=== PATIENT | female | born 1930 | race Caucasian/White ===

== ENCOUNTER → 2016-07-03 | Outpatient (CLI) | payer MEDICARE, BC | LOC: MW.CHORTHO 08:00 | PROVIDERS: ATTEND Physician Assistant | DX: M17.11 Unilateral primary osteoarthritis, right knee (principal) | CPT/HCPCS: 20610; G0463; J1040 ==

== ENCOUNTER 2018-05-17 07:49 | Observation (INO) | payer MEDICARE, BC ==
[2018-05-17] MEDS ORDERED: Sodium Chloride 0.9% 2.5 ML Syringe FLUSH PRN (08:05)
[2018-05-17] MEDS ORDERED: Sodium Chloride 0.9% 10 ML Syringe FLUSH PRN (08:05)
[2018-05-17] MEDS ORDERED: Albuterol/Ipratropium 3.0-0.5 MG/3 ML Neb Soln NEB ONE ×2 (08:05→09:25)
[2018-05-17] MEDS ORDERED: methylPREDNISolone Sodium Succinate 125 MG/2 ML SDV IVPUSH ONE (08:06)
--- NOTE | 2018-05-17 08:07 | EDM.PDOC ---
ED HPI GENERAL MEDICAL PROBLEM - General Chief Complaint: Respiratory Problem Stated Complaint: CONGEESTION & COUGH Time Seen by Provider: 05/17/18 08:00 - History of Present Illness INITIAL COMMENTS - FREE TEXT/NARRATIVE: HISTORY AND PHYSICAL: History of present illness: The patient is an 87-year-old female who resides at [facility] and has a history of hypertension peripheral edema and type 2 diabetes and is a code 3 status and was sent to the ED for a one-week history of dry cough minimally productive of any phlegm and the patient feeling worse over the last 24 hours with more shortness of breath and wheezing. The patient says she has no pulmonary history and her paperwork does not indicate that she has any significant pulmonary history and she has had no chest pain. She says she has been eating and drinking normally and has no abdominal pain vomiting or diarrhea. The patient said she had one episode where she was able to get some phlegm up with she doesn't feel like there is any phlegm trapped and she feels like the cough is very dry. According to the report from the residential she had an O2 sat of 90% on room air and she was placed on 2 L it went up to 94%. On arrival here she was 77% on room air and on 2 L she went up immediately to 94 %. The residential did not report giving any nebulizer treatments and she has no orders for same. They did not report any fever but here she is 99.6. In the ED the patient is speaking clearly and easily and she is cooperative and she has no complaints only of the cough and some shortness of breath. Please note that the patient does have a history of peripheral edema which she receives a low dose of Lasix daily as well as wears compression stockings on her legs. According to the paperwork and the patient she has never had congestive heart failure. Review of systems: As per history of present illness and below otherwise all systems reviewed and negative. Past medical history: As per history of present illness and as reviewed below otherwise noncontributory. Surgical history: As per history of present illness and as reviewed below otherwise noncontributory. Social history: No reported history of drug or alcohol abuse. Family history: As per history of present illness and as reviewed below otherwise noncontributory. Physical exam: General: Well-developed well-nourished female who is speaking without breathlessness and has no worker breathing. She moves easily in the bed and does have a dry cough on my evaluation. Vital signs are noted by me. O2 sat on 2 L is 94%. HEENT: Atraumatic, normocephalic, , negative for conjunctival pallor or scleral icterus, mucous membranes moist, throat clear, neck supple, nontender, trachea midline. No cervical adenopathy Lungs: Extremely wheezing throughout all garcia with some rhonchi and crackles at the bases but no work of breathing or stridor, breath sounds equal bilaterally, chest nontender. Heart: S1S2, regular rate and rhythm but heart sounds are very distant and difficult to auscultate due to the wheezing Abdomen: Soft, nondistended, nontender. Negative for masses or hepatosplenomegaly. Negative for costovertebral tenderness. Patient has a large ventral wall hernia which she says is not new and there is no tenderness Pelvis: Stable nontender. Genitourinary: Deferred. Rectal: Deferred. Extremities: Atraumatic, negative for cords or calf pain. Neurovascular unremarkable. No pedal edema and patient has compression stockings in place Neuro: Awake, alert, oriented. Cranial nerves II through XII unremarkable. Cerebellum unremarkable. Motor and sensory unremarkable throughout. Exam nonfocal. Diagnostics: EKG chest x-ray CBC CMP lactic acid blood cultures influenza Therapeutics: IV O2 monitor gentle IV fluids Solu-Medrol duo neb Patient is intermittently sleeping here as she says she is tired but she has a hacking harsh cough in the ED. She continues to sat at 91-92% on 2 L nasal cannula and she still continues to have wheezing. We will go ahead and give her another DuoNeb and slightly increased her oxygen to get her to 94% or above. I will plan on admission to the hospital and speak with the hospitalist once all testing results are back. 1000: Case was discussed with Dr. Purcell hospitalist who agrees with observation admission and would like her to not be on telemetry. He is currently seeing and evaluating the patient Impression: Bronchitis/bronchospasm with hypoxia; acute on chronic respiratory failure Definitive disposition and diagnosis as appropriate pending reevaluation and review of above. - Related Data Allergies Allergy/AdvReac Type Severity Reaction Status Date / Time house dust Allergy Other Verified 05/17/18 07:57 pollen extracts Allergy Other Verified 05/17/18 07:57 sertraline [From Zoloft] Allergy Other Verified 05/17/18 07:57 Home Meds: Home Meds Acetaminophen 325 mg PO DAILY 05/17/18 [History] Acetaminophen [8Hr Muscle Aches-Pain] 650 mg PO Q8HR 05/17/18 [History] Aspirin 81 mg PO DAILY 05/17/18 [History] Bisacodyl 1 supp RECTAL ASDIRECTED 05/17/18 [History] Calcium Carb & Citrate/Vit D3 [Calcium + D3 ER Tablet] 1 tab PO DAILY 05/17/18 [ History] Carbamide Peroxide [Debrox] 1 drop EARBOTH ASDIRECTED 05/17/18 [History] Citalopram Hydrobromide [Celexa] 20 mg PO DAILY 05/17/18 [History] Furosemide [Lasix] 20 mg PO DAILY 05/17/18 [History] Guiatuss Syrup 1 tsp PO DAILY 05/17/18 [History] Loperamide [Imodium] 2 mg PO DAILY 05/17/18 [History] Losartan/Hydrochlorothiazide [Losartan-HCTZ 100-25 MG] 1 tab PO DAILY 05/17/18 [ History] Mag Hydrox/Al Hydrox/Simeth [Maalox Maximum Strength Susp] 30 ml PO Q8HR PRN 06/30 [History] guaiFENesin [Mucinex] 1 tab PO DAILY 05/17/18 [History] Past Medical History HEENT History: Reports: None Cardiovascular History: Reports: None, High Cholesterol Respiratory History: Reports: None Genitourinary History: Reports: None Neurological History: Reports: None Psychiatric History: Reports: None Endocrine/Metabolic History: Reports: Diabetes, Type II Hematologic History: Reports: None Oncologic (Cancer) History: Reports: Breast - Infectious Disease History Infectious Disease History: Reports: None, Chicken Pox, Measles, Mumps, Rubella - Past Surgical History GI Surgical History: Reports: Appendectomy Female Surgical History: Reports: Hysterectomy Social & Family History - Family History Family Medical History: Noncontributory ED ROS GENERAL - Review of Systems Review Of Systems: ROS reveals no pertinent complaints other than HPI. ED EXAM, GENERAL - Physical Exam Exam: See Below (See dictation) Course - Vital Signs Last Recorded V/S: Last Vital Signs Temp 37.6 C 05/17/18 07:55 Pulse 76 05/17/18 09:25 Resp 22 H 05/17/18 07:55 BP 164/80 H 05/17/18 07:55 Pulse Ox 93 L 05/17/18 09:41 - Orders/Labs/Meds Orders: Active Orders 24 hr Category Date Time Status Patient Status [ADT] Stat ADT 05/17/18 09:59 Ordered Cardiac Monitoring [RC] . DIRECTED Care 05/17/18 08:04 Active EKG Documentation Completion [RC] STAT Care 05/17/18 08:04 Active Oxygen Therapy, ED [RC] ASDIRECTED Care 05/17/18 08:04 Active Pulse Oximetry [RC] ASDIRECTED Care 05/17/18 08:04 Active RT Aerosol Therapy [RC] ASDIRECTED Care 05/17/18 08:06 Active RT Aerosol Therapy [RC] ASDIRECTED Care 05/17/18 09:25 Active CULTURE BLOOD [BC] Stat Lab 05/17/18 08:20 Received CULTURE BLOOD [BC] Stat Lab 05/17/18 08:34 Received Sodium Chloride 0.9% [Normal Saline] 1,000 ml Med 05/17/18 08:15 Active IV ASDIRECTED Sodium Chloride 0.9% [Saline Flush] Med 05/17/18 08:05 Active 10 ml FLUSH ASDIRECTED PRN Sodium Chloride 0.9% [Saline Flush] Med 05/17/18 08:05 Active 2.5 ml FLUSH ASDIRECTED PRN Blood Culture x2 Reflex Set [OM.PC] Stat Oth 05/17/18 08:07 Ordered Saline Lock Insert [OM.PC] Stat Oth 05/17/18 08:04 Ordered Medication Orders Sodium Chloride (Normal Saline) 1,000 mls @ 50 mls/hr IV ASDIRECTED [facility] Admin: 05/17/18 08:33 Dose: 50 mls/hr Sodium Chloride (Saline Flush) 10 ml FLUSH ASDIRECTED PRN PRN Reason: Keep Vein Open Sodium Chloride (Saline Flush) 2.5 ml FLUSH ASDIRECTED PRN PRN Reason: Keep Vein Open Labs: Laboratory Tests 05/17/18 05/17/18 05/17/18 Range/Units 08:20 08:20 08:20 WBC 7.56 (4.0-11.0) K/uL RBC 4.66 (4.30-5.90) M/uL Hgb 13.5 (12.0-16.0) g/dL Hct 42.2 (36.0-46.0) % MCV 90.6 (80.0-98.0) fL MCH 29.0 (27.0-32.0) pg MCHC 32.0 (31.0-37.0) g/dL RDW Std Deviation 47.3 (28.0-62.0) fl RDW Coeff of Nurys 14 (11.0-15.0) % Plt Count 186 (150-400) K/uL MPV 10.00 (7.40-12.00) fL Neut % (Auto) 65.9 (48.0-80.0) % Lymph % (Auto) 16.4 (16.0-40.0) % [place] % (Auto) 11.6 (0.0-15.0) % Eos % (Auto) 6.0 (0.0-7.0) % Baso % (Auto) 0.1 (0.0-1.5) % Neut # (Auto) 5.0 (1.4-5.7) K/uL Lymph # (Auto) 1.2 (0.6-2.4) K/uL [place] # (Auto) 0.9 H (0.0-0.8) K/uL Eos # (Auto) 0.5 (0.0-0.7) K/uL Baso # (Auto) 0.0 (0.0-0.1) K/uL Nucleated RBC % 0.0 /100WBC Nucleated RBCs # 0 K/uL Lactate 1.0 (0.20-2.00) mmol/L Sodium 141 (136-145) mmol/L Potassium 3.6 (3.5-5.1) mmol/L Chloride 102 (98-107) mmol/L Carbon Dioxide 33.1 H (21.0-32.0) mmol/L BUN 29 H (7.0-18.0) mg/dL Creatinine 1.0 (0.6-1.0) mg/dL Est Cr Clr Drug Dosing 30.76 mL/min Estimated GFR (MDRD) 52.3 ml/min Glucose 124 H (74-106) mg/dL Calcium 9.9 (8.5-10.1) mg/dL Total Bilirubin 0.9 (0.2-1.0) mg/dL AST 13 L (15-37) IU/L ALT 15 (14-63) IU/L Alkaline Phosphatase 97 (46-116) U/L Troponin I (0.000-0.056) ng/mL B-Natriuretic Peptide (<100) PG/ML Total Protein 7.1 (6.4-8.2) g/dL Albumin 3.3 L (3.4-5.0) g/dL Globulin 3.8 (2.6-4.0) g/dL Albumin/Globulin Ratio 0.9 (0.9-1.6) 05/17/18 05/17/18 Range/Units 08:20 08:20 WBC (4.0-11.0) K/uL RBC (4.30-5.90) M/uL Hgb (12.0-16.0) g/dL Hct (36.0-46.0) % MCV (80.0-98.0) fL MCH (27.0-32.0) pg MCHC (31.0-37.0) g/dL RDW Std Deviation (28.0-62.0) fl RDW Coeff of Nurys (11.0-15.0) % Plt Count (150-400) K/uL MPV (7.40-12.00) fL Neut % (Auto) (48.0-80.0) % Lymph % (Auto) (16.0-40.0) % [place] % (Auto) (0.0-15.0) % Eos % (Auto) (0.0-7.0) % Baso % (Auto) (0.0-1.5) % Neut # (Auto) (1.4-5.7) K/uL Lymph # (Auto) (0.6-2.4) K/uL [place] # (Auto) (0.0-0.8) K/uL Eos # (Auto) (0.0-0.7) K/uL Baso # (Auto) (0.0-0.1) K/uL Nucleated RBC % /100WBC Nucleated RBCs # K/uL Lactate (0.20-2.00) mmol/L Sodium (136-145) mmol/L Potassium (3.5-5.1) mmol/L Chloride (98-107) mmol/L Carbon Dioxide (21.0-32.0) mmol/L BUN (7.0-18.0) mg/dL Creatinine (0.6-1.0) mg/dL Est Cr Clr Drug Dosing mL/min Estimated GFR (MDRD) ml/min Glucose (74-106) mg/dL Calcium (8.5-10.1) mg/dL Total Bilirubin (0.2-1.0) mg/dL AST (15-37) IU/L ALT (14-63) IU/L Alkaline Phosphatase (46-116) U/L Troponin I < 0.050 (0.000-0.056) ng/mL B-Natriuretic Peptide 38 (<100) PG/ML Total Protein (6.4-8.2) g/dL Albumin (3.4-5.0) g/dL Globulin (2.6-4.0) g/dL Albumin/Globulin Ratio (0.9-1.6) Meds: Medications Generic Name Dose Route Start Last Admin Trade Name Freq PRN Reason Stop Dose Admin Sodium Chloride 1,000 mls @ 50 mls/hr 05/17/18 08:15 05/17/18 08:33 Normal Saline IV 50 mls/hr ASDIRECTED LYNDSEY Administration Sodium Chloride 10 ml 05/17/18 08:05 Saline Flush FLUSH ASDIRECTED PRN Keep Vein Open Sodium Chloride 2.5 ml 05/17/18 08:05 Saline Flush FLUSH ASDIRECTED PRN Keep Vein Open Discontinued Medications Generic Name Dose Route Start Last Admin Trade Name Fremary PRN Reason Stop Dose Admin Albuterol/Ipratropium 3 ml 05/17/18 08:05 05/17/18 08:11 Duoneb 3.0-0.5 Mg/3 Ml NEB 05/17/18 08:06 3 ml ONETIME ONE Administration Albuterol/Ipratropium 3 ml 05/17/18 09:25 05/17/18 09:29 Duoneb 3.0-0.5 Mg/3 Ml NEB 05/17/18 09:26 3 ml ONETIME ONE Administration Methylprednisolone Sodium Succinate 125 mg 05/17/18 08:06 05/17/18 08:32 Solu-Medrol IVPUSH 05/17/18 08:07 125 mg ONETIME ONE Administration Departure - Departure Time of Disposition: 10:02 Disposition: Refer to Observation Condition: Good Clinical Impression: Hypoxia Acute bronchitis Qualifiers: Bronchitis organism: unspecified organism Qualified Code(s): J20.9 - Acute bronchitis, unspecified Acute and chronic respiratory failure Qualifiers: Respiratory failure complication: hypoxia Qualified Code(s): J96.21 - Acute and chronic respiratory failure with hypoxia - Discharge Information Referrals: PCP,None [Primary Care Provider] - Forms: ED Department Discharge - My Orders Last 24 Hours: My Active Orders 05/17/18 08:04 Cardiac Monitoring [RC] . DIRECTED EKG Documentation Completion [RC] STAT Oxygen Therapy, ED [RC] ASDIRECTED Pulse Oximetry [RC] ASDIRECTED Saline Lock Insert [OM.PC] Stat 05/17/18 08:05 Sodium Chloride 0.9% [Saline Flush] 10 ml FLUSH ASDIRECTED PRN Sodium Chloride 0.9% [Saline Flush] 2.5 ml FLUSH ASDIRECTED PRN 05/17/18 08:06 RT Aerosol Therapy [RC] ASDIRECTED 05/17/18 08:07 Blood Culture x2 Reflex Set [OM.PC] Stat 05/17/18 08:15 Sodium Chloride 0.9% [Normal Saline] 1,000 ml IV ASDIRECTED 05/17/18 08:20 CULTURE BLOOD [BC] Stat 05/17/18 08:34 CULTURE BLOOD [BC] Stat 05/17/18 09:25 RT Aerosol Therapy [RC] ASDIRECTED 05/17/18 09:59 Patient Status [ADT] Stat - Assessment/Plan Last 24 Hours: My Active Orders 05/17/18 08:04 Cardiac Monitoring [RC] . DIRECTED EKG Documentation Completion [RC] STAT Oxygen Therapy, ED [RC] ASDIRECTED Pulse Oximetry [RC] ASDIRECTED Saline Lock Insert [OM.PC] Stat 05/17/18 08:05 Sodium Chloride 0.9% [Saline Flush] 10 ml FLUSH ASDIRECTED PRN Sodium Chloride 0.9% [Saline Flush] 2.5 ml FLUSH ASDIRECTED PRN 05/17/18 08:06 RT Aerosol Therapy [RC] ASDIRECTED 05/17/18 08:07 Blood Culture x2 Reflex Set [OM.PC] Stat 05/17/18 08:15 Sodium Chloride 0.9% [Normal Saline] 1,000 ml IV ASDIRECTED 05/17/18 08:20 CULTURE BLOOD [BC] Stat 05/17/18 08:34 CULTURE BLOOD [BC] Stat 05/17/18 09:25 RT Aerosol Therapy [RC] ASDIRECTED 05/17/18 09:59 Patient Status [ADT] Stat
[2018-05-17] MEDS: Sodium Chloride 0.9% 1,000 ML IV SCH ×2 (08:33→12:21)
--- NOTE | 2018-05-17 08:36 | CR ---
Indication: Shortness of breath. Technique: A single AP portable view of the chest was obtained. Comparison: None Findings: The heart is borderline in size. The right hemidiaphragm is elevated. No infiltrate, pleural effusion, pneumothorax is identified. Impression: Elevation of the right hemidiaphragm. Dictated by Kimberly Feng MD @ May 17 2018 8:33AM Signed by Dr. Kimberly Feng @ May 17 2018 8:34AM
[2018-05-17] MEDS ORDERED: oxyCODONE 5 MG Tab PO PRN (10:10)
[2018-05-17] MEDS ORDERED: Acetaminophen 325 MG Tab PO PRN (10:10)
[2018-05-17] MEDS ORDERED: Docusate Sodium 100 MG Cap PO PRN (10:10)
[2018-05-17] MEDS ORDERED: Ondansetron 4 MG Tab.DIS PO PRN (10:10)
[2018-05-17] MEDS ORDERED: Temazepam 15 MG Cap PO PRN (10:10)
--- NOTE | 2018-05-17 10:49 | PCM.HP ---
H&P History of Present Illness - General Date of Service: 05/17/18 Admit Problem/Dx: Admission Diagnosis/Problem Admission Diagnosis/Problem Acute on chronic respiratory failure Source of Information: Patient, Old Records History Limitations: Reports: No Limitations - History of Present Illness Initial Comments - Free Text/Narative: The patient is an 87-year-old lady who resides at [facility] and she had presented to the emergency department with a chief complaint of a cough. The patient says that she was noted to have a cough and low oxygen levels and this was documented in the emergency room notes. The patient's only complaint is that she has a dry cough. She has no other complaints. She's had no dizziness or lightheadedness. The patient also has a large ventral hernia that has not been causing her any difficulty. On arrival in the emergency department the patient's oxygen saturation was at 77% on room air. Onset of Symptoms: Reports: Sudden Duration of Symptoms: Reports: Hour(s): Location: Reports: Chest Quality: Reports: Stabbing Severity: Mild Improves with: Reports: Rest Worsens with: Reports: Breathing Context: Reports: Sick Contact Associated Symptoms: Reports: Cough - Related Data Allergies/Adverse Reactions: Allergies Allergy/AdvReac Type Severity Reaction Status Date / Time house dust Allergy Other Verified 05/17/18 07:57 pollen extracts Allergy Other Verified 05/17/18 07:57 sertraline [From Zoloft] Allergy Other Verified 05/17/18 07:57 Home Medications: Home Meds Acetaminophen 325 mg PO DAILY 05/17/18 [History] Acetaminophen [8Hr Muscle Aches-Pain] 650 mg PO Q8HR PRN 05/17/18 [History] Aspirin 81 mg PO DAILY 05/17/18 [History] Bisacodyl 1 supp RECTAL ASDIRECTED PRN 05/17/18 [History] Calcium Carb & Citrate/Vit D3 [Calcium + D3 ER Tablet] 1 tab PO DAILY 05/17/18 [ History] Carbamide Peroxide [Debrox] 1 drop EARBOTH ASDIRECTED PRN 05/17/18 [History] Citalopram Hydrobromide [Celexa] 20 mg PO DAILY 05/17/18 [History] Furosemide [Lasix] 20 mg PO DAILY 05/17/18 [History] Guiatuss Syrup 1 tsp PO DAILY 05/17/18 [History] Loperamide [Imodium] 2 mg PO DAILY PRN 05/17/18 [History] Losartan/Hydrochlorothiazide [Losartan-HCTZ 100-25 MG] 1 tab PO DAILY 05/17/18 [ History] Mag Hydrox/Al Hydrox/Simeth [Maalox Maximum Strength Susp] 30 ml PO Q8HR PRN 06/30 [History] Memantine HCl [Namenda Xr] 28 mg PO BEDTIME PRN 05/17/18 [History] Potassium Chloride [Klor-Con 10] 10 meq PO DAILY 05/17/18 [History] Vit A/Vit C/Vit E/Zinc/Copper [Preservision] 2 tab PO DAILY 05/17/18 [History] guaiFENesin [Mucinex] 0.5 tab PO DAILY PRN 05/17/18 [History] Past Medical History HEENT History: Reports: None Cardiovascular History: Reports: None, High Cholesterol Respiratory History: Reports: None Other Respiratory History: Cough Gastrointestinal History: Reports: Other (See Below) Other Gastrointestinal History: abdominal hernia, constipation Genitourinary History: Reports: None CIVIL CLERK History: Reports: None Musculoskeletal History: Reports: Osteoarthritis, Other (See Below) Other Musculoskeletal History: generalized edema Neurological History: Reports: None Psychiatric History: Reports: None Endocrine/Metabolic History: Reports: None Hematologic History: Reports: None Immunologic History: Reports: None Oncologic (Cancer) History: Reports: Breast Dermatologic History: Reports: None - Infectious Disease History Infectious Disease History: Reports: None, Chicken Pox, Measles, Mumps, Rubella - Past Surgical History GI Surgical History: Reports: Appendectomy Female Surgical History: Reports: Hysterectomy Social & Family History - Family History Family Medical History: Noncontributory - Tobacco Use Smoking Status *Q: Never Smoker Second Hand Smoke Exposure: No - Caffeine Use Caffeine Use: Reports: None - Recreational Drug Use Recreational Drug Use: No - Living Situation & Occupation Living situation: Reports: , Extended Care Facility Occupation: Retired H&P Review of Systems - Review of Systems: Review Of Systems: See Below General: Reports: No Symptoms HEENT: Reports: Hearing Changes Pulmonary: Reports: Shortness of Breath, Cough. Denies: Sputum Cardiovascular: Reports: No Symptoms Gastrointestinal: Reports: No Symptoms Genitourinary: Reports: No Symptoms Musculoskeletal: Reports: No Symptoms Skin: Reports: No Symptoms Psychiatric: Reports: No Symptoms Neurological: Reports: No Symptoms Hematologic/Lymphatic: Reports: No Symptoms Immunologic: Reports: No Symptoms Exam - Exam Exam: See Below - Vital Signs Vital Signs: Last Vital Signs Temp 37.0 C 05/17/18 10:23 Pulse 76 05/17/18 09:38 Resp 20 05/17/18 09:38 BP 139/66 05/17/18 09:38 Pulse Ox 93 L 05/17/18 09:41 Weight: 90.083 kg - Exam Quality Assessment: Supplemental Oxygen General: Alert, Oriented, Cooperative HEENT: Conjunctiva Clear, EACs Clear, EOMI. No: Mucosa Moist & Loa (Dry) Neck: Supple, Trachea Midline Lungs: Normal Respiratory Effort, Rhonchi. No: Clear to Auscultation Cardiovascular: Regular Rate, Irregular Rhythm GI/Abdominal Exam: Normal Bowel Sounds, Soft, Non-Tender, No Distention, Other ( Large ventral hernia) (Female) Exam: Deferred Rectal (Female) Exam: Deferred Back Exam: Normal Inspection (Kyphosis) Extremities: No Pedal Edema Skin: Warm, Dry, Intact Neurological: Cranial Nerves Intact Neuro Extensive - Mental Status: Alert, Oriented x3 Psychiatric: Alert, Normal Affect, Normal Mood - Patient Data Lab Results Last 24 hrs: Laboratory Results - last 24 hr 05/17/18 05/17/18 05/17/18 Range/Units 08:20 08:20 08:20 WBC 7.56 (4.0-11.0) K/uL RBC 4.66 (4.30-5.90) M/uL Hgb 13.5 (12.0-16.0) g/dL Hct 42.2 (36.0-46.0) % MCV 90.6 (80.0-98.0) fL MCH 29.0 (27.0-32.0) pg MCHC 32.0 (31.0-37.0) g/dL RDW Std Deviation 47.3 (28.0-62.0) fl RDW Coeff of Nurys 14 (11.0-15.0) % Plt Count 186 (150-400) K/uL MPV 10.00 (7.40-12.00) fL Neut % (Auto) 65.9 (48.0-80.0) % Lymph % (Auto) 16.4 (16.0-40.0) % [place] % (Auto) 11.6 (0.0-15.0) % Eos % (Auto) 6.0 (0.0-7.0) % Baso % (Auto) 0.1 (0.0-1.5) % Neut # (Auto) 5.0 (1.4-5.7) K/uL Lymph # (Auto) 1.2 (0.6-2.4) K/uL [place] # (Auto) 0.9 H (0.0-0.8) K/uL Eos # (Auto) 0.5 (0.0-0.7) K/uL Baso # (Auto) 0.0 (0.0-0.1) K/uL Nucleated RBC % 0.0 /100WBC Nucleated RBCs # 0 K/uL Lactate 1.0 (0.20-2.00) mmol/L Sodium 141 (136-145) mmol/L Potassium 3.6 (3.5-5.1) mmol/L Chloride 102 (98-107) mmol/L Carbon Dioxide 33.1 H (21.0-32.0) mmol/L BUN 29 H (7.0-18.0) mg/dL Creatinine 1.0 (0.6-1.0) mg/dL Est Cr Clr Drug Dosing 30.76 mL/min Estimated GFR (MDRD) 52.3 ml/min Glucose 124 H (74-106) mg/dL Calcium 9.9 (8.5-10.1) mg/dL Magnesium (1.8-2.4) mg/dL Total Bilirubin 0.9 (0.2-1.0) mg/dL AST 13 L (15-37) IU/L ALT 15 (14-63) IU/L Alkaline Phosphatase 97 (46-116) U/L Troponin I (0.000-0.056) ng/mL B-Natriuretic Peptide (<100) PG/ML Total Protein 7.1 (6.4-8.2) g/dL Albumin 3.3 L (3.4-5.0) g/dL Globulin 3.8 (2.6-4.0) g/dL Albumin/Globulin Ratio 0.9 (0.9-1.6) 05/17/18 05/17/1819 Range/Units 08:20 08:20 08:20 WBC (4.0-11.0) K/uL RBC (4.30-5.90) M/uL Hgb (12.0-16.0) g/dL Hct (36.0-46.0) % MCV (80.0-98.0) fL MCH (27.0-32.0) pg MCHC (31.0-37.0) g/dL RDW Std Deviation (28.0-62.0) fl RDW Coeff of Nurys (11.0-15.0) % Plt Count (150-400) K/uL MPV (7.40-12.00) fL Neut % (Auto) (48.0-80.0) % Lymph % (Auto) (16.0-40.0) % [place] % (Auto) (0.0-15.0) % Eos % (Auto) (0.0-7.0) % Baso % (Auto) (0.0-1.5) % Neut # (Auto) (1.4-5.7) K/uL Lymph # (Auto) (0.6-2.4) K/uL [place] # (Auto) (0.0-0.8) K/uL Eos # (Auto) (0.0-0.7) K/uL Baso # (Auto) (0.0-0.1) K/uL Nucleated RBC % /100WBC Nucleated RBCs # K/uL Lactate (0.20-2.00) mmol/L Sodium (136-145) mmol/L Potassium (3.5-5.1) mmol/L Chloride (98-107) mmol/L Carbon Dioxide (21.0-32.0) mmol/L BUN (7.0-18.0) mg/dL Creatinine (0.6-1.0) mg/dL Est Cr Clr Drug Dosing mL/min Estimated GFR (MDRD) ml/min Glucose (74-106) mg/dL Calcium (8.5-10.1) mg/dL Magnesium 2.3 (1.8-2.4) mg/dL Total Bilirubin (0.2-1.0) mg/dL AST (15-37) IU/L ALT (14-63) IU/L Alkaline Phosphatase (46-116) U/L Troponin I < 0.050 (0.000-0.056) ng/mL B-Natriuretic Peptide 38 (<100) PG/ML Total Protein (6.4-8.2) g/dL Albumin (3.4-5.0) g/dL Globulin (2.6-4.0) g/dL Albumin/Globulin Ratio (0.9-1.6) Result Diagrams: 05/17/18 08:20 05/17/18 08:20 Marty Results Last 24 hrs: Microbiology 05/17/18 08:45 Influenza Type A Antigen Screen - Final Nasopharyngeal Swab NEGATIVE INFLUENZA A VIRUS AG Influenza Type B Antigen Screen - Final NEGATIVE INFLUENZA B VIRUS AG - Problem List (1) Acute and chronic respiratory failure SNOMED Code(s): 34219593 ICD Code: J96.20 - ACUTE AND CHR RESP FAILURE, UNSP W HYPOXIA OR HYPERCAPNIA Status: Acute Priority: High Current Visit: Yes Qualifiers: Respiratory failure complication: hypoxia Qualified Code(s): J96.21 - Acute and chronic respiratory failure with hypoxia (2) Acute bronchitis SNOMED Code(s): 92865165 ICD Code: J20.9 - ACUTE BRONCHITIS, UNSPECIFIED Status: Acute Priority: High Current Visit: Yes Qualifiers: Bronchitis organism: unspecified organism Qualified Code(s): J20.9 - Acute bronchitis, unspecified (3) Hypoxia SNOMED Code(s): 925540634 ICD Code: R09.02 - HYPOXEMIA Status: Acute Priority: High Current Visit : Yes Problem List Initiated/Reviewed/Updated: Yes Orders Last 24hrs: Active Orders 24 hr Category Date Time Status Patient Status [ADT] Stat ADT 05/17/18 09:59 Active Cardiac Monitoring [RC] . DIRECTED Care 05/17/18 08:04 Active EKG Documentation Completion [RC] STAT Care 05/17/18 08:04 Active Oxygen Therapy [RC] PRN Care 05/17/18 10:10 Active Oxygen Therapy, ED [RC] ASDIRECTED Care 05/17/18 08:04 Active Pulse Oximetry [RC] ASDIRECTED Care 05/17/18 08:04 Active RT Aerosol Therapy [RC] ASDIRECTED Care 05/17/18 08:06 Active RT Aerosol Therapy [RC] ASDIRECTED Care 05/17/18 09:25 Active Up With Assistance [RC] ASDIRECTED Care 05/17/18 10:10 Active VTE/DVT Education [RC] PER UNIT ROUTINE Care 05/17/18 10:10 Active Vital Signs [RC] Q4H Care 05/17/18 10:10 Active Heart Healthy Diet [DIET] Diet 05/17/18 Lunch Active BASIC METABOLIC PANEL,BMP [CHEM] AM Lab 05/18/18 05:11 Ordered CBC WITH AUTO DIFF [HEME] AM Lab 05/18/18 05:11 Ordered CULTURE BLOOD [BC] Stat Lab 05/17/18 08:20 Received CULTURE BLOOD [BC] Stat Lab 05/17/18 08:34 Received Acetaminophen [Tylenol] Med 05/17/18 10:10 Active 650 mg PO Q4H PRN Aspirin Med 05/18/18 09:00 Active 81 mg PO DAILY Citalopram Hydrobromide [Celexa] Med 05/18/18 09:00 Active 20 mg PO DAILY Docusate Sodium [Colace] Med 05/17/18 10:10 Active 100 mg PO BID PRN Enoxaparin [Lovenox] Med 05/17/18 10:15 Active 30 mg SUBCUT Q24H Furosemide [Lasix] Med 05/18/18 09:00 Active 20 mg PO DAILY Loperamide [Imodium] Med 05/18/18 09:00 Active 2 mg PO DAILY Losartan/Hydrochlorothiazide [Losartan-HCTZ 100-25 MG] Med 05/18/18 09:00 Active 1 tab PO DAILY Ondansetron [Zofran ODT] Med 05/17/18 10:10 Active 4 mg PO Q4H PRN Sodium Chloride 0.9% [Normal Saline] 1,000 ml Med 05/17/18 08:15 Active IV ASDIRECTED Sodium Chloride 0.9% [Saline Flush] Med 05/17/18 08:05 Active 10 ml FLUSH ASDIRECTED PRN Sodium Chloride 0.9% [Saline Flush] Med 05/17/18 08:05 Active 2.5 ml FLUSH ASDIRECTED PRN Temazepam [Restoril] Med 05/17/18 10:10 Active 15 mg PO BEDTIME PRN guaiFENesin [Mucinex] Med 05/18/18 09:00 Active 1 tab PO DAILY oxyCODONE Med 05/17/18 10:10 Active 5 mg PO Q4H PRN Blood Culture x2 Reflex Set [OM.PC] Stat Oth 05/17/18 08:07 Ordered Saline Lock Insert [OM.PC] Stat Oth 05/17/18 08:04 Ordered Resuscitation Status Routine Resus Stat 05/17/18 10:10 Ordered Medication Orders Acetaminophen (Tylenol) 650 mg PO Q4H PRN PRN Reason: Pain (Mild 1-3)/fever Aspirin (Aspirin) 81 mg PO DAILY [facility] Docusate Sodium (Colace) 100 mg PO BID PRN PRN Reason: Constipation Enoxaparin Sodium (Lovenox) 30 mg SUBCUT Q24H [facility] Furosemide (Lasix) 20 mg PO DAILY [facility] Sodium Chloride (Normal Saline) 1,000 mls @ 50 mls/hr IV ASDIRECTED LYNDSEY Last Admin: 05/17/18 08:33 Dose: 50 mls/hr Loperamide HCl (Imodium) 2 mg PO DAILY [facility] Non-Formulary Medication (Citalopram Hydrobromide [Celexa]) 20 mg PO DAILY [facility] Non-Formulary Medication (Guaifenesin [Mucinex]) 1 tab PO DAILY [facility] Non-Formulary Medication (Losartan/Hydrochlorothiazide [Losartan-Hctz 100-25 Mg] ) 1 tab PO DAILY [facility] Ondansetron HCl (Zofran Odt) 4 mg PO Q4H PRN PRN Reason: nausea, able to take PO Oxycodone HCl (Oxycodone) 5 mg PO Q4H PRN PRN Reason: Pain (moderate 4-6) Sodium Chloride (Saline Flush) 10 ml FLUSH ASDIRECTED PRN PRN Reason: Keep Vein Open Sodium Chloride (Saline Flush) 2.5 ml FLUSH ASDIRECTED PRN PRN Reason: Keep Vein Open Temazepam (Restoril) 15 mg PO BEDTIME PRN PRN Reason: Sleep Assessment/Plan Comment:: The patient is an 87-year-old lady who had been admitted secondary to acute hypoxemia with acute on chronic respiratory failure. Patient does has underlying baseline dementia although she is able to participate with a history of physical. The patient will be kept in observation for now. I've also ordered continuous pulse oximetry. Her oxygen will be continued via nasal cannula to help keep her oxygen saturations greater than 90%. Laboratory studies have been reviewed and are essentially noncontributory with the exception of a reduction in her EGFR down to 52.3. The patient will be gently fluid resuscitated with oral fluids. She is saline locked. She also be kept on IV steroids. I've also ordered low-dose azithromycin to help with her bronchitis. She's been encouraged to ambulate. She'll also have DVT prophylaxis with Lovenox. The patient should be appropriate for discharge back to [facility] in 1-2 days.
[2018-05-17] MEDS: Enoxaparin 30 MG/0.3 ML Syringe SUBCUT SCH (11:37)
[2018-05-17] MEDS ORDERED: guaiFENesin 600 MG Tab.ER PO PRN (16:27)
[2018-05-17] MEDS: Azithromycin 250 MG in Sodium Chloride 0.9% 250 ML IV SCH (17:11)
[2018-05-17] MEDS: methylPREDNISolone Sodium Succinate 125 MG/2 ML SDV IV SCH (21:41)
[2018-05-18] MEDS: methylPREDNISolone Sodium Succinate 125 MG/2 ML SDV IV SCH ×3 (05:31→21:54)
[2018-05-18] MEDS: Loperamide 2 MG Cap PO SCH (08:50)
[2018-05-18] MEDS: Citalopram 20 MG Tab PO SCH (08:50)
[2018-05-18] MEDS: Aspirin 81 MG Tab.Chew PO SCH (08:50)
[2018-05-18] MEDS: Furosemide 20 MG Tab PO SCH (08:50)
[2018-05-18] MEDS: Hydrochlorothiazide/Losartan 12.5-50 mg Tab PO SCH (08:50)
[2018-05-18] MEDS ORDERED: GUAIFENESIN PO SCH (09:00)
[2018-05-18] MEDS: Enoxaparin 30 MG/0.3 ML Syringe SUBCUT SCH (10:10)
--- NOTE | 2018-05-18 11:51 | PCM.PN ---
- General Info Date of Service: 05/18/18 Admission Dx/Problem (Free Text): Admission Diagnosis/Problem Admission Diagnosis/Problem Acute on chronic respiratory failure Subjective Update: The patient is an 87-year-old lady who resides at [facility]. She had presented to the emergency department with a complaint of a cough. Patient was noted to be hypoxic at the care home. The patient today says that she feels better. She still has a dry cough. She is still on oxygen. She has denied any pain. No fever or chills. Functional Status: Reports: Pain Controlled, Tolerating Diet - Review of Systems General: Reports: Weakness, Fatigue HEENT: Reports: No Symptoms Pulmonary: Reports: Cough. Denies: Sputum Cardiovascular: Reports: No Symptoms Gastrointestinal: Reports: No Symptoms Genitourinary: Reports: No Symptoms Musculoskeletal: Reports: No Symptoms Skin: Reports: No Symptoms Neurological: Reports: No Symptoms Psychiatric: Reports: No Symptoms - Patient Data Vitals - Most Recent: Last Vital Signs Temp 36.5 C 05/18/18 08:00 Pulse 62 05/18/18 08:00 Resp 17 05/18/18 08:00 BP 130/60 05/18/18 08:00 Pulse Ox 93 L 05/18/18 10:10 Weight - Most Recent: 90.083 kg I&O - Last 24 Hours: Intake & Output 05/17/18 05/18/18 05/18/18 22:59 06:59 14:59 Intake Total 377 200 Output Total 350 350 Balance 27 -150 Lab Results Last 24 Hours: Laboratory Results - last 24 hr 05/18/18 05/18/18 Range/Units 06:11 06:11 WBC 8.79 (4.0-11.0) K/uL RBC 4.35 (4.30-5.90) M/uL Hgb 12.4 (12.0-16.0) g/dL Hct 39.3 (36.0-46.0) % MCV 90.3 (80.0-98.0) fL MCH 28.5 (27.0-32.0) pg MCHC 31.6 (31.0-37.0) g/dL RDW Std Deviation 45.9 (28.0-62.0) fl RDW Coeff of Nurys 14 (11.0-15.0) % Plt Count 187 (150-400) K/uL MPV 9.70 (7.40-12.00) fL Neut % (Auto) 88.7 H (48.0-80.0) % Lymph % (Auto) 9.3 L (16.0-40.0) % [place] % (Auto) 2.0 (0.0-15.0) % Eos % (Auto) 0.0 (0.0-7.0) % Baso % (Auto) 0.0 (0.0-1.5) % Neut # (Auto) 7.8 H (1.4-5.7) K/uL Lymph # (Auto) 0.8 (0.6-2.4) K/uL [place] # (Auto) 0.2 (0.0-0.8) K/uL Eos # (Auto) 0.0 (0.0-0.7) K/uL Baso # (Auto) 0.0 (0.0-0.1) K/uL Nucleated RBC % 0.0 /100WBC Nucleated RBCs # 0 K/uL Sodium 142 (136-145) mmol/L Potassium 3.8 (3.5-5.1) mmol/L Chloride 105 (98-107) mmol/L Carbon Dioxide 31.2 (21.0-32.0) mmol/L BUN 34 H (7.0-18.0) mg/dL Creatinine 0.9 (0.6-1.0) mg/dL Est Cr Clr Drug Dosing 34.17 mL/min Estimated GFR (MDRD) 59.1 ml/min Glucose 188 H (74-106) mg/dL Calcium 9.5 (8.5-10.1) mg/dL Marty Results Last 24 Hours: Microbiology 05/17/18 08:34 Aerobic Blood Culture - Preliminary Blood - Venous - Lab Draw NO GROWTH AFTER 1 DAY Anaerobic Blood Culture - Preliminary NO GROWTH AFTER 1 DAY 05/17/18 08:20 Aerobic Blood Culture - Preliminary Blood - Venous NO GROWTH AFTER 1 DAY Anaerobic Blood Culture - Preliminary NO GROWTH AFTER 1 DAY 05/17/18 08:45 Influenza Type A Antigen Screen - Final Nasopharyngeal Swab NEGATIVE INFLUENZA A VIRUS AG Influenza Type B Antigen Screen - Final NEGATIVE INFLUENZA B VIRUS AG Med Orders - Current: Current Medications Acetaminophen (Tylenol) 650 mg PO Q4H PRN PRN Reason: Pain (Mild 1-3)/fever Aspirin (Aspirin) 81 mg PO DAILY [facility] Last Admin: 05/18/18 08:50 Dose: 81 mg Citalopram Hydrobromide (Celexa) 20 mg PO DAILY [facility] Last Admin: 05/18/18 08:50 Dose: 20 mg Docusate Sodium (Colace) 100 mg PO BID PRN PRN Reason: Constipation Enoxaparin Sodium (Lovenox) 30 mg SUBCUT Q24H [facility] Last Admin: 05/18/18 10:10 Dose: 30 mg Furosemide (Lasix) 20 mg PO DAILY [facility] Last Admin: 05/18/18 08:50 Dose: 20 mg Guaifenesin (Mucinex) 600 mg PO DAILY PRN PRN Reason: Congestion Last Admin: 05/17/18 17:01 Dose: 600 mg HCTZ/Losartan Potassium (Hyzaar 50-12.5 Mg) 2 tab PO DAILY [facility] Last Admin: 05/18/18 08:50 Dose: 2 tab Azithromycin 250 mg/ Sodium (Chloride) 250 mls @ 250 mls/hr IV Q24H [facility] Last Admin: 05/17/18 17:11 Dose: 250 mls/hr Loperamide HCl (Imodium) 2 mg PO DAILY [facility] Last Admin: 05/18/18 08:50 Dose: 2 mg Methylprednisolone Sodium Succinate (Solu-Medrol) 60 mg IV Q8HR [facility] Last Admin: 05/18/18 05:31 Dose: 60 mg Ondansetron HCl (Zofran Odt) 4 mg PO Q4H PRN PRN Reason: nausea, able to take PO Oxycodone HCl (Oxycodone) 5 mg PO Q4H PRN PRN Reason: Pain (moderate 4-6) Sodium Chloride (Saline Flush) 10 ml FLUSH ASDIRECTED PRN PRN Reason: Keep Vein Open Temazepam (Restoril) 15 mg PO BEDTIME PRN PRN Reason: Sleep Discontinued Medications Albuterol/Ipratropium (Duoneb 3.0-0.5 Mg/3 Ml) 3 ml NEB ONETIME ONE Stop: 05/17/18 08:06 Last Admin: 05/17/18 08:11 Dose: 3 ml Albuterol/Ipratropium (Duoneb 3.0-0.5 Mg/3 Ml) 3 ml NEB ONETIME ONE Stop: 05/17/18 09:26 Last Admin: 05/17/18 09:29 Dose: 3 ml Sodium Chloride (Normal Saline) 1,000 mls @ 50 mls/hr IV ASDIRECTED LYNDSEY Last Admin: 05/17/18 12:21 Dose: 50 mls/hr Methylprednisolone Sodium Succinate (Solu-Medrol) 125 mg IVPUSH ONETIME ONE Stop: 05/17/18 08:07 Last Admin: 05/17/18 08:32 Dose: 125 mg Non-Formulary Medication (Guaifenesin [Mucinex]) 1 tab PO DAILY [facility] Sodium Chloride (Saline Flush) 2.5 ml FLUSH ASDIRECTED PRN PRN Reason: Keep Vein Open - Exam Quality Assessment: Supplemental Oxygen General: Alert, Oriented, Cooperative, No Acute Distress HEENT: Pupils Equal, Pupils Reactive, EOMI Neck: Supple, Trachea Midline Lungs: Clear to Auscultation, Normal Respiratory Effort Cardiovascular: Regular Rate, Regular Rhythm GI/Abdominal Exam: Normal Bowel Sounds, Soft, Non-Tender, No Distention, Other ( Large stable ventral hernia without obstruction, chronic) (Female) Exam: Deferred Back Exam: No: Normal Inspection (Kyphosis) Extremities: Normal Inspection (For patient's given age), No Pedal Edema. No: Normal Range of Motion (Age-related changes and restrictions) Skin: Warm, Dry, Intact Neurological: No New Focal Deficit Psy/Mental Status: Alert, Normal Affect, Normal Mood - Problem List & Annotations (1) Acute and chronic respiratory failure SNOMED Code(s): 24384613 Code(s): J96.20 - ACUTE AND CHR RESP FAILURE, UNSP W HYPOXIA OR HYPERCAPNIA Status: Acute Priority: High Current Visit: Yes Qualifiers: Respiratory failure complication: hypoxia Qualified Code(s): J96.21 - Acute and chronic respiratory failure with hypoxia (2) Acute bronchitis SNOMED Code(s): 15273109 Code(s): J20.9 - ACUTE BRONCHITIS, UNSPECIFIED Status: Acute Priority: High Current Visit: Yes Qualifiers: Bronchitis organism: unspecified organism Qualified Code(s): J20.9 - Acute bronchitis, unspecified (3) Hypoxia SNOMED Code(s): 899676050 Code(s): R09.02 - HYPOXEMIA Status: Acute Priority: High Current Visit : Yes - Problem List Review Problem List Initiated/Reviewed/Updated: Yes - My Orders Last 24 Hours: My Active Orders 05/17/18 16:27 guaiFENesin [Mucinex] 600 mg PO DAILY PRN 05/17/18 17:00 Azithromycin [Zithromax] 250 mg Sodium Chloride 0.9% [Normal Saline] 250 ml IV Q24H 05/17/18 17:21 Overnight Pulse Oximetry [RC] Click to Edit Pulse Oximetry Continuous Monitoring [OM.PC] Routine 05/17/18 22:00 methylPREDNISolone Sod Succ [Solu-MEDROL] 60 mg IV Q8HR 05/17/18 Lunch Heart Healthy Diet [DIET] 05/18/18 09:00 Aspirin 81 mg PO DAILY Citalopram [Celexa] 20 mg PO DAILY Furosemide [Lasix] 20 mg PO DAILY Hydrochlorothiazide/Losartan [Hyzaar 50-12.5 MG] 2 tab PO DAILY Loperamide [Imodium] 2 mg PO DAILY - Plan Plan:: The patient is an 87-year-old lady who had been admitted secondary to acute hypoxemia with acute on chronic respiratory failure. Patient does has underlying baseline dementia although she is able to participate with a history of physical. The patient will be kept in observation for now. I've also ordered continuous pulse oximetry. Her oxygen will be continued via nasal cannula to help keep her oxygen saturations greater than 90%. Laboratory studies have been reviewed and are essentially noncontributory with the exception of a reduction in her EGFR down to 52.3. The patient will be gently fluid resuscitated with oral fluids. She is saline locked. She also be kept on IV steroids. I've also ordered low-dose azithromycin to help with her bronchitis. She's been encouraged to ambulate. She'll also have DVT prophylaxis with Lovenox. The patient should be appropriate for discharge back to [facility] in 1-2 days. The patient is an 87-year-old lady who had been admitted from [facility]. Initially the patient's pulse ox was noted to be at 77% on room air and her oxygen therapy will be continued to keep her oxygen levels greater than 92% . The patient is currently on azithromycin for atypical upper respiratory infection. She will also be continued on Solu-Medrol at 60 mg IV every 8 hours scheduled. The patient has been recommended to ambulate with assistance. Repeat laboratory testing to been ordered for the morning. The patient should be appropriate for discharge to [place] in 1 day depending upon oxygen demands.
[2018-05-18] MEDS: Azithromycin 250 MG in Sodium Chloride 0.9% 250 ML IV SCH (17:26)
[2018-05-19] MEDS: methylPREDNISolone Sodium Succinate 125 MG/2 ML SDV IV SCH (06:03)
[2018-05-19 07:54] VITALS: BP 123/84
--- NOTE | 2018-05-19 09:07 | PCM.DCSUM1 ---
<Leora Campbell M - Last Filed: 05/19/18 09:59> Discharge Summary - Hospital Course Brief History: This 87-year-old female who resides at [facility] and she had presented to the emergency department with a chief complaint of a cough. The patient says that she was noted to have a cough and low oxygen levels and this was documented in the emergency room notes. The patient's only complaint is that she has a dry cough. She has no other complaints. She's had no dizziness or lightheadedness. The patient also has a large ventral hernia that has not been causing her any difficulty. On arrival in the emergency department the patient's oxygen saturation was at 77% on room air. Diagnosis: Stroke: No - Discharge Data Discharge Date: 05/19/18 Discharge Disposition: DC/Tfer to [facility] 03 Condition: Good - Discharge Diagnosis/Problem(s) (1) Acute bronchitis SNOMED Code(s): 14536715 ICD Code: J20.9 - ACUTE BRONCHITIS, UNSPECIFIED Status: Acute Priority: High Qualifiers: Bronchitis organism: unspecified organism Qualified Code(s): J20.9 - Acute bronchitis, unspecified (2) Hypoxia SNOMED Code(s): 584683365 ICD Code: R09.02 - HYPOXEMIA Status: Acute Priority: High (3) Ventral hernia without obstruction or gangrene SNOMED Code(s): 442084375 ICD Code: K43.9 - VENTRAL HERNIA WITHOUT OBSTRUCTION OR GANGRENE Status: Chronic (4) Dementia SNOMED Code(s): 58346018 ICD Code: F03.90 - UNSPECIFIED DEMENTIA WITHOUT BEHAVIORAL DISTURBANCE Status: Chronic (5) Peripheral edema SNOMED Code(s): 008192809 ICD Code: R60.9 - EDEMA, UNSPECIFIED Status: Chronic - Patient Summary/Data Consults: Consultations 05/18/18 16:10 Consult to Physical Therapy [PT Evaluation and Treatment] [CONS] Routine OT Evaluation and Treatment [CONS] Routine - Patient Instructions Diet: Regular Diet as Tolerated Activity: As Tolerated Showering/Bathing: May Shower Notify Provider of: Fever, Increased Pain, Swelling and Redness, Drainage, Nausea and/or Vomiting Other/Special Instructions: Oxygen 3 L NC continuously keep sats greater than 88 %. PT/OT to evaluate and treat - Discharge Plan *PRESCRIPTION DRUG MONITORING PROGRAM REVIEWED*: Not Applicable *COPY OF PRESCRIPTION DRUG MONITORING REPORT IN PATIENT [place]: Not Applicable Prescriptions/Med Rec: Azithromycin 500 mg PO DAILY #4 tablet predniSONE [Prednisone] 40 mg PO DAILY #8 tablet Home Medications: Home Meds Acetaminophen 325 mg PO DAILY 05/17/18 [History] Acetaminophen [8Hr Muscle Aches-Pain] 650 mg PO Q8HR PRN 05/17/18 [History] Aspirin 81 mg PO DAILY 05/17/18 [History] Bisacodyl 1 supp RECTAL ASDIRECTED PRN 05/17/18 [History] Calcium Carb & Citrate/Vit D3 [Calcium + D3 ER Tablet] 1 tab PO DAILY 05/17/18 [ History] Carbamide Peroxide [Debrox] 1 drop EARBOTH ASDIRECTED PRN 05/17/18 [History] Citalopram Hydrobromide [Celexa] 20 mg PO DAILY 05/17/18 [History] Furosemide [Lasix] 20 mg PO DAILY 05/17/18 [History] Guiatuss Syrup 1 tsp PO DAILY 05/17/18 [History] Loperamide [Imodium] 2 mg PO DAILY PRN 05/17/18 [History] Losartan/Hydrochlorothiazide [Losartan-HCTZ 100-25 MG] 1 tab PO DAILY 05/17/18 [ History] Mag Hydrox/Al Hydrox/Simeth [Maalox Maximum Strength Susp] 30 ml PO Q8HR PRN 06/30 [History] Memantine HCl [Namenda Xr] 28 mg PO BEDTIME PRN 05/17/18 [History] Potassium Chloride [Klor-Con 10] 10 meq PO DAILY 05/17/18 [History] Vit A/Vit C/Vit E/Zinc/Copper [Preservision] 2 tab PO DAILY 05/17/18 [History] guaiFENesin [Mucinex] 0.5 tab PO DAILY PRN 05/17/18 [History] Azithromycin 500 mg PO DAILY #4 tablet 05/19/18 [Rx] predniSONE [Prednisone] 40 mg PO DAILY #8 tablet 05/19/18 [Rx] Oxygen Therapy Mode: Nasal Cannula Oxygen Flow Rate (L/min): 3 Maintain SPO2% less than: 88 Patient Handouts: Hypoxia Referrals: Shahzad Eric MD [Physician] - 05/25/18 (follow up next rounds) - Discharge Summary/Plan Comment DC Time >30 min.: No Discharge Summary/Plan Comment: Discharge Diagnoses: Acute bronchitis Hypoxia Dementia Peripheral edema Marisel was admitted due to hypoxia. No leukocytosis noted, CXR negative. She was placed on Azithromycin and Solu-medrol and placed on oxygen. She has continued to improve. Denies cough and denies anymore shortness of breath. She remains on 2-3 L NC. No overt edema noted. No chest pain. She is eager to go back to [place]. She will be discharged home on 3 l NC, wean as possible to off. Azithromycin 500 mg for 4 more days and a short taper of Prednisone 40 mg for 4 more days. She is to see Dr Eric at next [place] rounds. She is to return to ED or clinic if concerns should arise. - General Info Date of Service: 05/19/18 Admission Dx/Problem (Free Text: Admission Diagnosis/Problem Admission Diagnosis/Problem Acute on chronic respiratory failure Subjective Update: Doing well this morning. Denies pain, denies shortness of breath or cough. Feeling much better. Eager to go back to [place]. Functional Status: Reports: Pain Controlled, Tolerating Diet, Ambulating, Urinating - Review of Systems General: Reports: No Symptoms. Denies: Fever, Weakness, Fatigue HEENT: Reports: No Symptoms. Denies: Headaches, Sore Throat Pulmonary: Reports: No Symptoms. Denies: Shortness of Breath, Cough, Sputum Cardiovascular: Reports: No Symptoms. Denies: Chest Pain, Edema Gastrointestinal: Reports: No Symptoms. Denies: Abdominal Pain, Nausea, Vomiting Genitourinary: Reports: No Symptoms. Denies: Dysuria, Frequency, Burning Musculoskeletal: Reports: No Symptoms Skin: Reports: No Symptoms Neurological: Reports: No Symptoms Psychiatric: Reports: No Symptoms - Patient Data Vitals - Most Recent: Last Vital Signs Temp 97.9 F 05/19/18 07:15 Pulse 68 05/19/18 07:15 Resp 14 05/19/18 07:15 BP 123/84 05/19/18 07:15 Pulse Ox 92 L 05/19/18 07:15 Weight - Most Recent: 90.083 kg I&O - Last 24 hours: Intake & Output 05/18/18 05/19/18 05/19/18 22:59 06:59 14:59 Intake Total 300 200 Output Total 550 500 Balance -250 -300 Lab Results - Last 24 hrs: Laboratory Results - last 24 hr 05/19/18 05/19/18 Range/Units 04:55 04:55 WBC 9.14 (4.0-11.0) K/uL RBC 4.30 (4.30-5.90) M/uL Hgb 12.1 (12.0-16.0) g/dL Hct 39.4 (36.0-46.0) % MCV 91.6 (80.0-98.0) fL MCH 28.1 (27.0-32.0) pg MCHC 30.7 L (31.0-37.0) g/dL RDW Std Deviation 46.9 (28.0-62.0) fl RDW Coeff of Nurys 14 (11.0-15.0) % Plt Count 194 (150-400) K/uL MPV 10.30 (7.40-12.00) fL Neut % (Auto) 90.0 H (48.0-80.0) % Lymph % (Auto) 7.3 L (16.0-40.0) % [place] % (Auto) 2.7 (0.0-15.0) % Eos % (Auto) 0.0 (0.0-7.0) % Baso % (Auto) 0.0 (0.0-1.5) % Neut # (Auto) 8.2 H (1.4-5.7) K/uL Lymph # (Auto) 0.7 (0.6-2.4) K/uL [place] # (Auto) 0.3 (0.0-0.8) K/uL Eos # (Auto) 0.0 (0.0-0.7) K/uL Baso # (Auto) 0.0 (0.0-0.1) K/uL Nucleated RBC % 0.0 /100WBC Nucleated RBCs # 0 K/uL Sodium 142 (136-145) mmol/L Potassium 3.9 (3.5-5.1) mmol/L Chloride 105 (98-107) mmol/L Carbon Dioxide 32.5 H (21.0-32.0) mmol/L BUN 48 H (7.0-18.0) mg/dL Creatinine 1.0 (0.6-1.0) mg/dL Est Cr Clr Drug Dosing 30.76 mL/min Estimated GFR (MDRD) 52.3 ml/min Glucose 183 H (74-106) mg/dL Calcium 9.6 (8.5-10.1) mg/dL YASIR Results - Last 24 hrs: Microbiology 05/17/18 08:34 Aerobic Blood Culture - Preliminary Blood - Venous - Lab Draw NO GROWTH AFTER 2 DAYS Anaerobic Blood Culture - Preliminary NO GROWTH AFTER 2 DAYS 05/17/18 08:20 Aerobic Blood Culture - Preliminary Blood - Venous NO GROWTH AFTER 2 DAYS Anaerobic Blood Culture - Preliminary NO GROWTH AFTER 2 DAYS Med Orders - Current: Current Medications Acetaminophen (Tylenol) 650 mg PO Q4H PRN PRN Reason: Pain (Mild 1-3)/fever Aspirin (Aspirin) 81 mg PO DAILY [facility] Last Admin: 05/18/18 08:50 Dose: 81 mg Citalopram Hydrobromide (Celexa) 20 mg PO DAILY [facility] Last Admin: 05/18/18 08:50 Dose: 20 mg Docusate Sodium (Colace) 100 mg PO BID PRN PRN Reason: Constipation Enoxaparin Sodium (Lovenox) 30 mg SUBCUT Q24H [facility] Last Admin: 05/18/18 10:10 Dose: 30 mg Furosemide (Lasix) 20 mg PO DAILY [facility] Last Admin: 05/18/18 08:50 Dose: 20 mg Guaifenesin (Mucinex) 600 mg PO DAILY PRN PRN Reason: Congestion Last Admin: 05/17/18 17:01 Dose: 600 mg HCTZ/Losartan Potassium (Hyzaar 50-12.5 Mg) 2 tab PO DAILY [facility] Last Admin: 05/18/18 08:50 Dose: 2 tab Azithromycin 250 mg/ Sodium (Chloride) 250 mls @ 250 mls/hr IV Q24H [facility] Last Admin: 05/18/18 17:26 Dose: 250 mls/hr Loperamide HCl (Imodium) 2 mg PO DAILY [facility] Last Admin: 05/18/18 08:50 Dose: 2 mg Methylprednisolone Sodium Succinate (Solu-Medrol) 60 mg IV Q8HR [facility] Last Admin: 05/19/18 06:03 Dose: 60 mg Ondansetron HCl (Zofran Odt) 4 mg PO Q4H PRN PRN Reason: nausea, able to take PO Oxycodone HCl (Oxycodone) 5 mg PO Q4H PRN PRN Reason: Pain (moderate 4-6) Sodium Chloride (Saline Flush) 10 ml FLUSH ASDIRECTED PRN PRN Reason: Keep Vein Open Temazepam (Restoril) 15 mg PO BEDTIME PRN PRN Reason: Sleep Discontinued Medications Albuterol/Ipratropium (Duoneb 3.0-0.5 Mg/3 Ml) 3 ml NEB ONETIME ONE Stop: 05/17/18 08:06 Last Admin: 05/17/18 08:11 Dose: 3 ml Albuterol/Ipratropium (Duoneb 3.0-0.5 Mg/3 Ml) 3 ml NEB ONETIME ONE Stop: 05/17/18 09:26 Last Admin: 05/17/18 09:29 Dose: 3 ml Sodium Chloride (Normal Saline) 1,000 mls @ 50 mls/hr IV ASDIRECTED [facility] Last Admin: 05/17/18 12:21 Dose: 50 mls/hr Methylprednisolone Sodium Succinate (Solu-Medrol) 125 mg IVPUSH ONETIME ONE Stop: 05/17/18 08:07 Last Admin: 05/17/18 08:32 Dose: 125 mg Non-Formulary Medication (Guaifenesin [Mucinex]) 1 tab PO DAILY [facility] Sodium Chloride (Saline Flush) 2.5 ml FLUSH ASDIRECTED PRN PRN Reason: Keep Vein Open - Exam General: Reports: Alert, Oriented, Cooperative, No Acute Distress Neck: Reports: Supple Lungs: Reports: Clear to Auscultation, Normal Respiratory Effort. Denies: Rhonchi, Wheezing Cardiovascular: Reports: Regular Rate, Regular Rhythm, No Murmurs GI/Abdominal Exam: Normal Bowel Sounds, Soft, Non-Tender Back Exam: Reports: Normal Inspection, Full Range of Motion Extremities: Normal Inspection, Normal Range of Motion, Non-Tender, No Pedal Edema Wound/Incisions: Reports: Healing Well Neurological: Reports: No New Focal Deficit Psy/Mental Status: Reports: Alert, Normal Affect, Normal Mood <Fernie Purcell - Last Filed: 05/19/18 15:53> Discharge Summary - Hospital Course HPI Initial Comments: I have seen and examined the patient independently of Leora Campbell CNP. I agree with the assessment and plan of care as outlined for this patient by the Leora Campbell. Please see orders. She will be reassigned to [facility] today. - Discharge Diagnosis/Problem(s) (1) Acute and chronic respiratory failure SNOMED Code(s): 87049746 ICD Code: J96.20 - ACUTE AND CHR RESP FAILURE, UNSP W HYPOXIA OR HYPERCAPNIA Status: Acute Priority: High Qualifiers: Respiratory failure complication: hypoxia Qualified Code(s): J96.21 - Acute and chronic respiratory failure with hypoxia (2) Acute bronchitis SNOMED Code(s): 09179730 ICD Code: J20.9 - ACUTE BRONCHITIS, UNSPECIFIED Status: Acute Priority: High Qualifiers: Bronchitis organism: unspecified organism Qualified Code(s): J20.9 - Acute bronchitis, unspecified (3) Hypoxia SNOMED Code(s): 036996840 ICD Code: R09.02 - HYPOXEMIA Status: Acute Priority: High - Patient Summary/Data Consults: Consultations 05/18/18 16:10 Consult to Physical Therapy [PT Evaluation and Treatment] [CONS] Routine OT Evaluation and Treatment [CONS] Routine - Patient Data Vitals - Most Recent: Last Vital Signs Temp 36.6 C 05/19/18 07:15 Pulse 68 05/19/18 07:15 Resp 14 05/19/18 07:15 BP 123/84 05/19/18 07:15 Pulse Ox 92 L 05/19/18 07:15 I&O - Last 24 hours: Intake & Output 05/19/18 05/19/18 05/19/18 06:59 14:59 22:59 Intake Total 200 Output Total 500 Balance -300 Lab Results - Last 24 hrs: Laboratory Results - last 24 hr 05/19/18 05/19/18 Range/Units 04:55 04:55 WBC 9.14 (4.0-11.0) K/uL RBC 4.30 (4.30-5.90) M/uL Hgb 12.1 (12.0-16.0) g/dL Hct 39.4 (36.0-46.0) % MCV 91.6 (80.0-98.0) fL MCH 28.1 (27.0-32.0) pg MCHC 30.7 L (31.0-37.0) g/dL RDW Std Deviation 46.9 (28.0-62.0) fl RDW Coeff of Nurys 14 (11.0-15.0) % Plt Count 194 (150-400) K/uL MPV 10.30 (7.40-12.00) fL Neut % (Auto) 90.0 H (48.0-80.0) % Lymph % (Auto) 7.3 L (16.0-40.0) % [place] % (Auto) 2.7 (0.0-15.0) % Eos % (Auto) 0.0 (0.0-7.0) % Baso % (Auto) 0.0 (0.0-1.5) % Neut # (Auto) 8.2 H (1.4-5.7) K/uL Lymph # (Auto) 0.7 (0.6-2.4) K/uL [place] # (Auto) 0.3 (0.0-0.8) K/uL Eos # (Auto) 0.0 (0.0-0.7) K/uL Baso # (Auto) 0.0 (0.0-0.1) K/uL Nucleated RBC % 0.0 /100WBC Nucleated RBCs # 0 K/uL Sodium 142 (136-145) mmol/L Potassium 3.9 (3.5-5.1) mmol/L Chloride 105 (98-107) mmol/L Carbon Dioxide 32.5 H (21.0-32.0) mmol/L BUN 48 H (7.0-18.0) mg/dL Creatinine 1.0 (0.6-1.0) mg/dL Est Cr Clr Drug Dosing 30.76 mL/min Estimated GFR (MDRD) 52.3 ml/min Glucose 183 H (74-106) mg/dL Calcium 9.6 (8.5-10.1) mg/dL YASIR Results - Last 24 hrs: Microbiology 05/17/18 08:34 Aerobic Blood Culture - Preliminary Blood - Venous - Lab Draw NO GROWTH AFTER 2 DAYS Anaerobic Blood Culture - Preliminary NO GROWTH AFTER 2 DAYS 05/17/18 08:20 Aerobic Blood Culture - Preliminary Blood - Venous NO GROWTH AFTER 2 DAYS Anaerobic Blood Culture - Preliminary NO GROWTH AFTER 2 DAYS Med Orders - Current: Current Medications Discontinued Medications Acetaminophen (Tylenol) 650 mg PO Q4H PRN PRN Reason: Pain (Mild 1-3)/fever Albuterol/Ipratropium (Duoneb 3.0-0.5 Mg/3 Ml) 3 ml NEB ONETIME ONE Stop: 05/17/18 08:06 Last Admin: 05/17/18 08:11 Dose: 3 ml Albuterol/Ipratropium (Duoneb 3.0-0.5 Mg/3 Ml) 3 ml NEB ONETIME ONE Stop: 05/17/18 09:26 Last Admin: 05/17/18 09:29 Dose: 3 ml Aspirin (Aspirin) 81 mg PO DAILY [facility] Last Admin: 05/19/18 09:29 Dose: 81 mg Citalopram Hydrobromide (Celexa) 20 mg PO DAILY [facility] Last Admin: 05/19/18 09:27 Dose: 20 mg Docusate Sodium (Colace) 100 mg PO BID PRN PRN Reason: Constipation Enoxaparin Sodium (Lovenox) 30 mg SUBCUT Q24H [facility] Last Admin: 05/19/18 09:29 Dose: 30 mg Furosemide (Lasix) 20 mg PO DAILY [facility] Last Admin: 05/19/18 09:29 Dose: 20 mg Guaifenesin (Mucinex) 600 mg PO DAILY PRN PRN Reason: Congestion Last Admin: 05/17/18 17:01 Dose: 600 mg HCTZ/Losartan Potassium (Hyzaar 50-12.5 Mg) 2 tab PO DAILY [facility] Last Admin: 05/19/18 09:26 Dose: 2 tab Sodium Chloride (Normal Saline) 1,000 mls @ 50 mls/hr IV ASDIRECTED [facility] Last Admin: 05/17/18 12:21 Dose: 50 mls/hr Azithromycin 250 mg/ Sodium (Chloride) 250 mls @ 250 mls/hr IV Q24H [facility] Last Admin: 05/18/18 17:26 Dose: 250 mls/hr Loperamide HCl (Imodium) 2 mg PO DAILY [facility] Last Admin: 05/19/18 09:28 Dose: 2 mg Methylprednisolone Sodium Succinate (Solu-Medrol) 125 mg IVPUSH ONETIME ONE Stop: 05/17/18 08:07 Last Admin: 05/17/18 08:32 Dose: 125 mg Methylprednisolone Sodium Succinate (Solu-Medrol) 60 mg IV Q8HR [facility] Last Admin: 05/19/18 06:03 Dose: 60 mg Non-Formulary Medication (Guaifenesin [Mucinex]) 1 tab PO DAILY [facility] Ondansetron HCl (Zofran Odt) 4 mg PO Q4H PRN PRN Reason: nausea, able to take PO Oxycodone HCl (Oxycodone) 5 mg PO Q4H PRN PRN Reason: Pain (moderate 4-6) Sodium Chloride (Saline Flush) 10 ml FLUSH ASDIRECTED PRN PRN Reason: Keep Vein Open Sodium Chloride (Saline Flush) 2.5 ml FLUSH ASDIRECTED PRN PRN Reason: Keep Vein Open Temazepam (Restoril) 15 mg PO BEDTIME PRN PRN Reason: Sleep
[2018-05-19] MEDS: Hydrochlorothiazide/Losartan 12.5-50 mg Tab PO SCH (09:26)
[2018-05-19] MEDS: Citalopram 20 MG Tab PO SCH (09:27)
[2018-05-19] MEDS: Loperamide 2 MG Cap PO SCH (09:28)
[2018-05-19] MEDS: Aspirin 81 MG Tab.Chew PO SCH (09:29)
[2018-05-19] MEDS: Furosemide 20 MG Tab PO SCH (09:29)
[2018-05-19] MEDS: Enoxaparin 30 MG/0.3 ML Syringe SUBCUT SCH (09:29)
== END 2018-05-19 13:00 ==
LOC: MW.ED 07:49 → MW.MS 09:59
PROVIDERS: ADMIT Internal Medicine; ATTEND Internal Medicine
DX: J96.21 Acute and chronic respiratory failure with hypoxia (principal); J20.9 Acute bronchitis, unspecified; K43.9 Ventral hernia without obstruction or gangrene; F03.90 Unspecified dementia, unspecified severity, without behavioral disturbance, psychotic disturbance, mood disturbance, and anxiety; R60.9 Edema, unspecified; Z79.82 Long term (current) use of aspirin; Z79.52 Long term (current) use of systemic steroids; Z79.899 Other long term (current) drug therapy
CPT/HCPCS: 36415; 71045; 80048; 80053; 83605; 83735; 83880; 84484; 85025; 87040; 87804; 93005; 94640; 96361; 96365; 96372; 96375; 96376; 97161; 97165; 99285; A9270; G0378; J0456; J1650; J2930; J7040; J7050; 96374; J7620-GY